=== PATIENT | male | born 1975 | race Caucasian/White ===

== ENCOUNTER 2020-05-06 14:15 | Outpatient (RCR) | payer BC | END 2020-06-21 | disposition still patient (30) | LOC: PT | DX: R53.1 Weakness (principal); Z87.81 Personal history of (healed) traumatic fracture ==

== ENCOUNTER → 2020-10-11 | Outpatient (CLI) | payer BC ==
[2020-10-11 12:25] LABS: EOS # 0.2 (0.04-0.40); EOS % 1.6 % (0.0-4.0); HEMATOCRIT 45.6 % (42.0-52.0); LYMPH# 3.1 (1.50-4.00); MEAN CELL VOLUME 93 fl (78-100); MEAN CORPUSCULAR HEMOGLOBIN 31 pg (27-31); MEAN CORPUSCULAR HGB CONC 33 g/dL (33-37); MEAN PLATELET VOLUME 10.1 fl (7.4-10.4); NEU # 4.9 (1.40-6.50); PLATELET COUNT 320 K/mm3 (130-400); RED BLOOD COUNT 4.88 M/mm3 (4.20-5.60); RED CELL DISTRIBUTION WIDTH 12.8 % (11.5-14.5); WHITE BLOOD COUNT 9.3 K/mm3 (4.8-10.8)
[2020-10-11 12:30] LABS: POTASSIUM 4.3 mmol/L (3.5-5.1)
[2020-10-11 12:31] LABS: ALBUMIN 4.4 g/dL (3.5-5.0)
[2020-10-11 12:32] LABS: CALCIUM 9.6 mg/dL (8.3-10.5)
[2020-10-11 12:33] LABS: TOTAL PROTEIN 7.4 g/dL (6.4-8.3)
[2020-10-11 12:35] LABS: TOTAL BILIRUBIN 0.3 mg/dL (0.2-1.2)
== END ==
LOC: LAB 11:42
PROVIDERS: Physician Assistant
DX: Z00.00 Encounter for general adult medical examination without abnormal findings (principal)

== ENCOUNTER → 2021-07-26 | Outpatient (CLI) | payer BC | LOC: RAD 16:38 | DX: S61.200A Unspecified open wound of right index finger without damage to nail, initial encounter (principal); M25.741 Osteophyte, right hand ==

== ENCOUNTER → 2021-09-18 | Outpatient (CLI) | payer BC ==
[2021-09-18 14:09] LABS: ALBUMIN 4.4 g/dL (3.5-5.0); POTASSIUM 4.3 mmol/L (3.5-5.1)
[2021-09-18 14:10] LABS: CALCIUM 9.8 mg/dL (8.3-10.5)
[2021-09-18 14:11] LABS: TOTAL PROTEIN 7.5 g/dL (6.4-8.3)
[2021-09-18 14:13] LABS: TOTAL BILIRUBIN 0.4 mg/dL (0.2-1.2)
== END ==
LOC: LAB 13:36
PROVIDERS: Psychiatry & Neurology Psychiatry
DX: Z79.899 Other long term (current) drug therapy (principal)

== ENCOUNTER → 2021-11-30 | Outpatient (CLI) | payer BC ==
[2021-11-30 10:21] LABS: BASO # 0.02 K/mm3 (0.02-0.10); EOS # 0.21 K/mm3 (0.04-0.40); EOS % 2.3 % (0.0-4.0); HEMATOCRIT 46.6 % (42.0-52.0); HEMOGLOBIN 15.4 g/dL (13.5-18.0); LYMPH# 3.09 K/mm3 (1.50-4.00); MEAN CELL VOLUME 94 fl (78-100); MEAN CORPUSCULAR HEMOGLOBIN 31 pg (27-31); MEAN CORPUSCULAR HGB CONC 33 g/dL (33-37); MEAN PLATELET VOLUME 10.3 fl (7.4-10.4); MONO # 0.98 K/mm3 (0.20-0.80); NEU # 5.01 K/mm3 (1.40-6.50); PLATELET COUNT 230 K/mm3 (130-400); RED BLOOD COUNT 4.94 M/mm3 (4.20-5.60); RED CELL DISTRIBUTION WIDTH 11.6 % (11.5-14.5); WHITE BLOOD COUNT 9.3 K/mm3 (4.8-10.8)
[2021-11-30 11:42] LABS: POTASSIUM 4.7 mmol/L (3.5-5.1)
[2021-11-30 11:43] LABS: ALBUMIN 4.4 g/dL (3.5-5.0)
[2021-11-30 11:44] LABS: CALCIUM 10.2 mg/dL (8.3-10.5)
[2021-11-30 11:45] LABS: TOTAL PROTEIN 7.7 g/dL (6.4-8.3)
[2021-11-30 11:47] LABS: TOTAL BILIRUBIN 0.5 mg/dL (0.2-1.2)
== END ==
LOC: LAB 10:01
PROVIDERS: Physician Assistant
DX: Z00.00 Encounter for general adult medical examination without abnormal findings (principal); Z12.5 Encounter for screening for malignant neoplasm of prostate; K90.9 Intestinal malabsorption, unspecified

== ENCOUNTER → 2022-04-23 | Outpatient (CLI) | payer BC | LOC: RAD 15:15 | DX: S83.206A Unspecified tear of unspecified meniscus, current injury, right knee, initial encounter (principal); M25.80 Other specified joint disorders, unspecified joint; S83.241A Other tear of medial meniscus, current injury, right knee, initial encounter ==

== ENCOUNTER 2022-05-01 20:51 | Emergency (ER) | payer BC ==
[2022-05-01] MEDS ORDERED: NEXIUM 40MG40 MG PO (21:39)
[2022-05-01] MEDS ORDERED: PREDNISONE20 M1 PO (22:27)
[2022-05-01 22:39] VITALS: BP 162/106
== END 2022-05-01 22:39 | disposition home or self-care (01) ==
LOC: ED 20:51
DX: L23.7 Allergic contact dermatitis due to plants, except food (principal); F17.210 Nicotine dependence, cigarettes, uncomplicated
CPT/HCPCS: J2930

== ENCOUNTER → 2022-07-09 | Outpatient (CLI) | payer BC ==
[~2022-07-09] MED LIST: NEXIUM 40MG40 MG PO; PREDNISONE20 M1 PO
== END ==
LOC: RAD 10:22
DX: M17.11 Unilateral primary osteoarthritis, right knee (principal); M25.521 Pain in right elbow

== ENCOUNTER → 2022-08-13 | Day surgery (SDC) | payer BC | LOC: MSO 07:16 | DX: Z12.11 Encounter for screening for malignant neoplasm of colon (principal) | CPT/HCPCS: 00812; J2704; J7120 ==